=== PATIENT | male | born 1950 | race Caucasian/White ===

== ENCOUNTER 2021-12-07 12:42 | Emergency (ER) | payer OTHER ==
[2021-12-07 13:01] VITALS: BP 128/82; PULSE 85; RESP 18; TEMP 98.2; BMI 26.6
== END 2021-12-07 13:22 | disposition left against medical advice (07) ==
LOC: JERFT 12:42
DX: N48.29 Other inflammatory disorders of penis (principal)
CPT/HCPCS: 99283-25

== ENCOUNTER 2022-07-30 12:59 | Inpatient (IN) | payer OTHER ==
[2022-07-30] MEDS ORDERED: ACETAMINOPHEN 325 MG TABLET (FP) PO ONE (13:44)
[2022-07-30] MEDS ORDERED: ACETAMINOPHEN 325 MG TABLET (FP) ONE (14:00)
[2022-07-30] MEDS ORDERED: DIPHTH,PERTUSS(ACELL),TET 0.5 ML DISP.SYRIN IM ONE ×2 (14:30→14:40)
[2022-07-30 14:57] LABS: INR 1.06 (0.83-1.09); PROTHROMBIN TIME (PATIENT) 12.3 SEC (9.7-13.0)
[2022-07-30 15:00] LABS: ACTIVATED PTT 30.1 SECONDS (25.2-36.5); ALBUMIN 3.8 g/dl (3.4-5.0); CALCIUM 8.7 mg/dL (8.5-10.1)
[2022-07-30 15:01] LABS: BLOOD UREA NITROGEN 23.7 mg/dL (7-18)
[2022-07-30 15:02] LABS: BASO % 0.5 % (0-2.0); EOS % 1.5 % (0-4.5); HEMATOCRIT 45.2 % (35.4-49); HEMOGLOBIN 14.9 GM/dL (11.7-16.9); LYMPH % 16.5 % (8-40); MCH 30.9 pg (25.7-33.7); MEAN CELL VOLUME 93.4 fl (80-96); MEAN PLT VOLUME 8.4 fl (7.5-11.1); MONO % 5.5 % (3.8-10.2); PLATELET COUNT 176 10^3/uL (134-434); RBC 4.84 M/mm3 (4.00-5.60); RDW 13.4 % (11.9-15.9); WHITE BLOOD COUNT 6.3 K/mm3 (4.0-10.0)
[2022-07-30 15:03] LABS: CREATININE 0.8 mg/dL (0.55-1.3)
[2022-07-30 15:05] LABS: BILIRUBIN,TOTAL 0.7 mg/dL (0.2-1); TOT PROT 6.8 g/dl (6.4-8.2)
[2022-07-30] MEDS ORDERED: ZOLPIDEM TARTRATE 5 MG TABLET PO PRN (22:12)
[2022-07-31 05:03] VITALS: BMI 24.7
[2022-07-31 08:55] LABS: BASO % 0.8 % (0-2.0); EOS % 3.9 % (0-4.5); HEMATOCRIT 44.1 % (35.4-49); LYMPH % 35.3 % (8-40); MCH 32.2 pg (25.7-33.7); MCHC 33.9 g/dl (32.0-35.9); MEAN CELL VOLUME 94.8 fl (80-96); MEAN PLT VOLUME 8.9 fl (7.5-11.1); PLATELET COUNT 185 10^3/uL (134-434); RBC 4.65 M/mm3 (4.00-5.60); RDW 13.2 % (11.9-15.9); WHITE BLOOD COUNT 5.9 K/mm3 (4.0-10.0)
[2022-07-31 09:12] LABS: ALBUMIN 3.7 g/dl (3.4-5.0); BLOOD UREA NITROGEN 17.6 mg/dL (7-18); CALCIUM 8.8 mg/dL (8.5-10.1)
[2022-07-31 09:15] LABS: CREATININE 0.9 mg/dL (0.55-1.3)
[2022-07-31 09:16] LABS: TOT PROT 6.8 g/dl (6.4-8.2)
[2022-07-31 09:17] LABS: BILIRUBIN,TOTAL 0.6 mg/dL (0.2-1)
[2022-07-31] MEDS ORDERED: PANTOPRAZOLE 40 MG TABLET PO SCH (10:00)
[2022-07-31] MEDS ORDERED: ATORVASTATIN CA 20 MG TABLET (FP) PO SCH (10:00)
[2022-07-31] MEDS ORDERED: CARVEDILOL 12.5 MG TABLET (FP) PO SCH (12:00)
[2022-07-31] MEDS ORDERED: SACUBITRIL/VALSARTAN 97 MG-103 MG TABLET PO SCH (12:15)
[2022-07-31 13:54] VITALS: BP 132/78; PULSE 92; RESP 18; TEMP 97.4
[2022-08-01] MEDS ORDERED: TAMSULOSIN HCL 0.4 MG CAP PO SCH (08:30)
== END 2022-07-31 14:18 | disposition left against medical advice (07) | DRG 913 ==
LOC: JER 12:59 → JERBED 17:38 → OBSVTOIN 22:15 → J6S 07-31 03:33
PROVIDERS: ADMIT Internal Medicine; ATTEND Internal Medicine
PROC: 0HQ1XZZ Repair Face Skin, External Approach (ICD-10-PCS; principal; 2022-07-30)
DX: S09.90XA Unspecified injury of head, initial encounter (principal); G93.6 Cerebral edema; I50.22 Chronic systolic (congestive) heart failure; S01.111A Laceration without foreign body of right eyelid and periocular area, initial encounter; I25.10 Atherosclerotic heart disease of native coronary artery without angina pectoris; J44.9 Chronic obstructive pulmonary disease, unspecified; D32.9 Benign neoplasm of meninges, unspecified; I11.0 Hypertensive heart disease with heart failure; I50.9 Heart failure, unspecified; I48.91 Unspecified atrial fibrillation; I44.7 Left bundle-branch block, unspecified; I25.2 Old myocardial infarction; M54.12 Radiculopathy, cervical region; E78.5 Hyperlipidemia, unspecified; M54.50 Low back pain, unspecified; W01.0XXA Fall on same level from slipping, tripping and stumbling without subsequent striking against object, initial encounter; Y92.830 Public park as the place of occurrence of the external cause; Z95.5 Presence of coronary angioplasty implant and graft; Z87.11 Personal history of peptic ulcer disease
CPT/HCPCS: 36415; 70450-TC; 70486-TC; 71045-TC-FY; 72125-TC; 80053; 83735; 85025; 85610; 85730; 86850; 86900; 86901; 93005; 93010; 99285-25; C9803-CS; G0378; U0003; U0005